=== PATIENT | female | born 1985 | race Caucasian/White ===

== ENCOUNTER 2016-10-27 18:57 | Emergency (ER) | payer OTHER ==
--- NOTE | ~2016-10-27 | CR63 ---
[facility] A Service of [facility] RADIOLOGY TEXT RESULTS PATIENT: GISSEL JORDAN LOCATION: SED : 83 UNIT #: [id number] AGE: [address]: GERALDO QUEEN SEX: F ORDER DR: [id number] [place] [id number] E MR#: [id number] Acc #: [id number] NAME: GISSEL JORDAN : 1985 SEX: F STUDY DATE/TIME: 10/27/2016 19:29 UNIT: SED ROOM: STUDY DESCRIPTION: CR Chest 2 View Attending Physician: Geraldo Queen Ordering Physician: Physician Non-Staff Primary Care Physician: Chidi John D.O. MEDICAL IMAGING REPORT This report is preliminary unless electronic signature is present. EXAM Two-view chest. HISTORY Cough, hives, ear pain for 3 days. COMPARISON 08/22/2016 FINDINGS PA and lateral examination of the chest upright shows a good expansion of the parenchyma with a normal distribution of the pulmonary vascularity. There is no indication of congestion, effusion, infiltrate, tumor, or nodular density. The pleural reflections and diaphragmatic contours are normal. The cardiac silhouette and mediastinal anatomy is within normal limits. IMPRESSION Normal chest. Dictated by... Juan Luis Perez M.D. THIS IS AN ELECTRONICALLY VERIFIED REPORT Juan Luis Perez M.D. at 10/28/2016 2:08 PM HARRISON/flaquita TD: 10/28/2016 10:14 JOB #: [id number] [facility]. [facility] A Service of [facility] RADIOLOGY TEXT RESULTS PATIENT: GISSEL JORDAN LOCATION: SED : 83 UNIT #: [id number] AGE: [address]: GERALDO QUEEN SEX: F ORDER DR: MEDICAL IMAGING REPORT
[~2016-10-27 18:57] MED LIST: ALBUTEROL17 GM; ALBUTEROL17 GM INH; ALBUTEROL17 GM NEB; ALLEGRA60 M1 PO; AMITRIPTYLINE H25 MG PO; AZMACORT20 GM; BACLOFEN10 MG PO; BACTRIM DS TABL1 TA1 PO; BENADRYL25 M1 PO; BENZONATATE PO; CIPRO PO; COMBIVENT MININEB INH; CYMBALTA PO; DICLOXAXILLIN250 MG PO; DIFLUCAN PO; FLEXERIL PO; FLEXERIL10 MG PO; HYDROCODON-ACE1 EAC7 PO; IBUPROFEN PO; KEFLEX PO; LEXAPRO PO; LORTAB 5/500 TA1 TA1 PO; LORTAB 7.5-5001 TAB PO; MAGIC MOUTHWASH PO; MEDROL DOSE PAK; MEDROL PO; MEDROL4 MG/DOSE- PO; MELATONIN10 M1 PO; NABUMETONE PO; NEURONTIN300 MG; NO MEDICATIONS; NORCO 5/325 TAB1 TAB PO; OMEPRAZOLE20 M1 PO; OMEPRAZOLE40 M1 PO; OMNICEF300 M1 PO; OMNICEF300 MG PO; PERCOCET 5-3251 TAB PO; PHENERGAN PO; PREDNISONE PO; PREDNISONE10 MG PO; PROMETHAZINE D118 ML PO; PYRIDIUM PO; ROBITUSSIN COU118 M8; SINGULAIR PO; ULTRAM PO; VICODIN PO; YAZ; Z PAK; ZOFRANODT SL; ZOLOFT PO; ZYRTEC10 M2 PO
[2016-10-27 19:07] LABS: INFLUENZA A NEG (NEG); INFLUENZA B NEG (NEG)
== END 2016-10-27 20:27 | disposition home or self-care (01) ==
LOC: SED 18:57
PROVIDERS: Nurse Practitioner
DX: J01.10 Acute frontal sinusitis, unspecified (principal); J01.00 Acute maxillary sinusitis, unspecified; J04.0 Acute laryngitis; J45.909 Unspecified asthma, uncomplicated
CPT/HCPCS: 71020; 87651; 87804; 94640; 99284

== ENCOUNTER 2016-11-03 22:11 | Emergency (ER) | payer OTHER ==
--- NOTE | ~2016-11-03 | CR141 ---
[facility] A Service of [facility] RADIOLOGY TEXT RESULTS PATIENT: GISSEL JORDAN LOCATION: SED : 83 UNIT #: [id number] AGE: [address]: Savannah Crabtree MD SEX: F ORDER DR: [id number] [place] [id number] E MR#: [id number] Acc #: [id number] NAME: GISSEL JORDAN : 1985 SEX: F STUDY DATE/TIME: 11/03/2016 22:16 UNIT: SED ROOM: STUDY DESCRIPTION: CR Hand Min 3 Views Lt Attending Physician: Savannah Crabtree M.D. Ordering Physician: Physician Non-Staff Primary Care Physician: Chidi John D.O. MEDICAL IMAGING REPORT This report is preliminary unless electronic signature is present. EXAM Left hand series 11/03/2016 HISTORY 31-year-old female in the ED complaining of thumb pain after fall tonight. TECHNIQUE Three-view left hand series. FINDINGS The examination is negative. No fracture, dislocation or other acute osseous abnormality is demonstrated. IMPRESSION Negative left hand series. Dictated by... Gio Newman M.D. THIS IS AN ELECTRONICALLY VERIFIED REPORT Gio Newman M.D. at 11/04/2016 10:05 PM JOIE/beverley TD: 11/04/2016 12:33 JOB #: [id number] MEDICAL IMAGING REPORT Page 1 of 1
== END 2016-11-03 23:48 | disposition home or self-care (01) ==
LOC: SED 22:11
DX: S63.92XA Sprain of unspecified part of left wrist and hand, initial encounter (principal); Z88.2 Allergy status to sulfonamides; Z88.0 Allergy status to penicillin; Z88.5 Allergy status to narcotic agent; Z91.040 Latex allergy status; Z88.8 Allergy status to other drugs, medicaments and biological substances; Z79.899 Other long term (current) drug therapy; W18.39XA Other fall on same level, initial encounter; Y92.098 Other place in other non-institutional residence as the place of occurrence of the external cause
CPT/HCPCS: 29280; 73130; 99283

== ENCOUNTER 2017-01-22 15:55 | Emergency (ER) | payer OTHER ==
--- NOTE | ~2017-01-22 | CT2 ---
[facility] A Service of [facility] RADIOLOGY TEXT RESULTS PATIENT: GISSEL JORDAN LOCATION: SED : 83 UNIT #: [id number] AGE: [address]: CONRAD THAKKAR SEX: F ORDER DR: [id number] [address] [address] [id number] E MR#: [id number] Acc #: [id number] NAME: GISSEL JORDAN : 1985 SEX: F STUDY DATE/TIME: 01/22/2017 17:49 UNIT: SED ROOM: STUDY DESCRIPTION: CT Abd and Pelv W Cont Attending Physician: Harish) Conrad Thakkar Referring Physician: Cayetano Kohli M.D. Ordering Physician: Ronak Thakkar Primary Care Physician: Chidi John D.O. MEDICAL IMAGING REPORT This report is preliminary unless electronic signature is present. EXAM CT abdomen and pelvis with IV contrast. HISTORY Abdomen pain for 4 days, left side. Nausea and vomiting. TECHNIQUE This CT exam was performed with one or more of the following radiation dose reduction techniques: automatic exposure control, adjustment of mA and/or kV according to patient size, and iterative reconstruction. FINDINGS CT abdomen and pelvis was performed with IV contrast. CT ABDOMEN: The liver, gallbladder, pancreas, right kidney, and adrenal glands are normal. Mild multifocal parenchymal scarring in the upper and lower poles of the left kidney. Splenic enlargement measures 13.6 cm in length. No bowel dilatation. No adenopathy. No ascites. Normal caliber abdominal aorta. CT PELVIS: Normal appendix. No free fluid. No inflammatory changes. Hysterectomy. Tubal ligation clips in the adnexa. IMPRESSION 1. No acute findings in the abdomen or pelvis. 2. No bowel obstruction. 3. Mild splenic enlargement measuring 13.6 cm. 4. Normal appendix. Hysterectomy. [facility] A Service [facility] RADIOLOGY TEXT RESULTS PATIENT: GISSEL JORDAN LOCATION: SED : 83 UNIT #: [id number] AGE: [address]: CONRAD THAKKAR SEX: F ORDER DR: Dictated by... Parminder Linda M.D. THIS IS AN ELECTRONICALLY VERIFIED REPORT Parminder Linda M.D. at 01/22/2017 11:12 PM SHIVAM/primitivo TD: 01/22/2017 22:28 JOB #: [id number] MEDICAL IMAGING REPORT Page 1 of 1
[2017-01-22] MEDS ORDERED: AMITIZA8 MCG (15:57)
[2017-01-22 17:14] LABS: URINE SOURCE CLEAN CATCH
[2017-01-22 17:18] LABS: URINE APPEARANCE CLEAR; URINE BILIRUBIN NEG (NEG); URINE BLOOD NEG (NEG); URINE COLOR YELLOW; URINE GLUCOSE NEG (NORM); URINE KETONE NEG (NEG); URINE LEUKOCYTE ESTERASE NEG (NEG); URINE NITRATE NEG (NEG); URINE PH 5.5 (5-8); URINE PROTEIN TRACE (NEG); URINE SPECIFIC GRAVITY >=1.030 (1.003-1.035)
[2017-01-22 17:19] LABS: MICRO INDICATED? YES
[2017-01-22 17:21] LABS: CULTURE INDICATED? YES; URINE BACTERIA 1+ (NEG)
[2017-01-22 17:22] LABS: URINE CRYSTALS CALCIUM OXALATE /[HPF]; URINE MUCUS PRESENT; URINE SQUAMOUS EPITHELIAL CELL MODERATE /[HPF]
[2017-01-22 17:23] LABS: BASOPHIL% 0.3 % (0-2.5); DIFF IND NO; EOSINOPHIL# 0.1 X10e3 (0-0.7); EOSINOPHIL% 0.8 % (0.0-7.0); HEMATOCRIT 37.6 % (35.0-45.0); LYMPHOCYTE# 1.7 X10e3 (1.0-3.5); LYMPHOCYTE% 23.2 % (17.0-45.0); MEAN CELL VOLUME 85.8 FL (83-96); MEAN CORPUSCULAR HEMOGLOBIN 29.6 PG (28-34); MEAN CORPUSCULAR HGB CONC 34.5 g/dL (30-36); MEAN PLATELET VOLUME 7.8 FL (6.5-11.5); MONOCYTE# 0.4 X10e3 (0-1.0); MONOCYTE% 5.3 % (3.0-12.0); NEUTROPHIL# 5.1 X10e3 (1.5-7.1); NEUTROPHIL% 70.4 % (40-75); PLATELET COUNT 307 X10e3 (140-420); RED BLOOD COUNT 4.39 X10e (3.90-5.30); RED CELL DISTRIBUTION WIDTH 13.2 % (11.0-15.5); WHITE BLOOD COUNT 7.3 X10e3 (4.0-10.5)
[2017-01-22 17:39] LABS: ALBUMIN SERUM 4.1 g/dL (3.5-5.0); BILIRUBIN, DIRECT 0.1 mg/dL (0.0-0.2); BILIRUBIN,INDIRECT 0.2 mg/dL (0.0-0.9); BILIRUBIN,TOTAL 0.3 mg/dL (0.2-2.0); CALCIUM SERUM 8.9 mg/dL (8.4-10.2); CREATININE SERUM 0.6 mg/dL (0.6-1.4); GLOM FILT RATE Estimated 119.8 mL/min (>60); POTASSIUM 3.1 mmol/L (3.5-5.1); PROTEIN TOTAL SERUM 7.1 g/dL (6.0-8.3)
== END 2017-01-22 19:13 | disposition home or self-care (01) ==
LOC: SED 15:55
PROVIDERS: Physician Assistant
DX: N30.00 Acute cystitis without hematuria (principal); E87.6 Hypokalemia; K21.9 Gastro-esophageal reflux disease without esophagitis; J45.909 Unspecified asthma, uncomplicated; Z90.710 Acquired absence of both cervix and uterus; Z88.2 Allergy status to sulfonamides; Z88.8 Allergy status to other drugs, medicaments and biological substances; Z88.0 Allergy status to penicillin; Z88.6 Allergy status to analgesic agent; Z88.5 Allergy status to narcotic agent; Z91.040 Latex allergy status; Z91.018 Allergy to other foods; Z79.899 Other long term (current) drug therapy
CPT/HCPCS: 36415; 74177; 80048; 80076; 81003; 82150; 83690; 85025; 87086; 96361; 96372; 96374; 99284; J0500; J2405; Q9967